=== PATIENT | male | born 1995 | race Caucasian/White ===

== ENCOUNTER 2019-01-19 14:06 | Outpatient (CLI) | payer OTHER ==
[2019-01-19 16:51] LABS: #Eosinphils 0.1 thou/uL (0.0-0.7); #Lymphocytes 1.7 thou/uL (1.20-3.40); #Monocytes 0.5 thou/uL (0.11-0.59); %Basophils 0.3 % (0.0-1.0); %Eosinophils 0.9 % (0.0-10.0); %Lymphocytes 23.3 % (21.0-51.0); %Neutrophils 68.5 % (42.0-75.0); Hemoglobin 16.3 g/dL (14.0-18.0); Mean Corpuscular HGB CONC 35.6 g/dL (32.0-36.0); Mean Corpuscular Hemoglobin 30.3 pg (27.0-31.0); Mean Corpuscular Volume 85.1 fL (78.0-98.0); Mean Platelet Volume 7.2 fL (7.4-10.4); Platelet Count 234 thou/uL (130-400); RBC Distribution Width 12.3 % (11.5-14.5); Red Blood Cell (RBC) Count 5.38 mill/uL (4.70-6.10); White Blood Cell (WBC) Count 7.3 thou/uL (4.8-10.8)
[2019-01-19 17:19] LABS: Anion Gap 13 mmol/L (10-20); BUN (Urea Nitrogen) 10 mg/dL (8.9-20.6); Calc. Creatinine Clearance 0 mL/min (70-130); Calcium 8.8 mg/dL (7.8-10.44); Carbon Dioxide 24 mmol/L (22-29); Chloride 104 mmol/L (98-107); Estimated GFR-MDRD Greater than 90; Glucose 95 mg/dL (70-105); Potassium 3.8 mmol/L (3.5-5.1); Sodium 137 mmol/L (136-145)
== END 2019-01-19 14:07 | disposition home or self-care (01) ==
LOC: LABBT 14:06
PROVIDERS: ATTEND Surgery
DX: Z01.812 Encounter for preprocedural laboratory examination (principal); K40.90 Unilateral inguinal hernia, without obstruction or gangrene, not specified as recurrent
CPT/HCPCS: 80048; 85025

== ENCOUNTER 2019-01-22 05:43 | Day surgery (SDC) | payer OTHER ==
[2019-01-19 15:51] VITALS: BMI 26.9
[2019-01-22] MEDS ORDERED: SUGAMMADEX SODIUM 200 MG/2 ML VIAL ONE (06:02)
[2019-01-22] MEDS ORDERED: Fentanyl 100 MCG/2 ML VIAL ONE ×3 (06:02→10:19)
[2019-01-22] MEDS ORDERED: Bupivacaine/Epinephrine 0.25% 30 ML VIAL ONE (06:41)
[2019-01-22] MEDS ORDERED: Midazolam HCl 2 mg/2 ml Vial ONE (07:00)
[2019-01-22] MEDS ORDERED: Meperidine HCl/PF 25 MG/ML VIAL ONE (09:22)
[2019-01-22] MEDS ORDERED: Lidocaine 1% PF 5 ML VIAL ONE (09:58)
[2019-01-22] MEDS ORDERED: Glycopyrrolate 0.2 MG/ML 5 ML SYRINGE ONE (09:58)
[2019-01-22] MEDS ORDERED: Ketorolac Tromethamine 30 MG/ML VIAL ONE (09:58)
[2019-01-22] MEDS ORDERED: diphenhydrAMINE 50 MG/ML VIAL ONE (09:58)
[2019-01-22] MEDS ORDERED: Ondansetron PF 4 MG/2 ML Vial ONE (09:58)
[2019-01-22] MEDS ORDERED: Rocuronium Bromide 10 MG/ML (10ML VIAL) ONE (09:58)
[2019-01-22] MEDS ORDERED: PROPOFOL 200 MG/20 ML VIAL ONE (09:58)
[2019-01-22] MEDS ORDERED: Dexamethasone 20 MG/5 ML VIAL ONE (09:58)
--- NOTE | 2019-01-22 10:02 | OP ---
DATE OF PROCEDURE: 01/22/2019 PREOPERATIVE DIAGNOSIS: Right inguinal hernia. POSTOPERATIVE DIAGNOSIS: Bilateral inguinal hernia. PROCEDURE PERFORMED: Da Asif laparoscopic bilateral inguinal hernia repair with mesh 3DMax large, Da Asif robot. ANESTHESIA: General. ESTIMATED BLOOD LOSS: Minimal. COMPLICATIONS: None. SPECIMEN: None. FINDINGS: Bilateral inguinal hernia. DESCRIPTION OF PROCEDURE: The patient was taken to the operating room and laid supine on the operating room table. After general anesthetic was obtained, the Aragon was placed, and the abdomen and groins were shaved, prepped, and draped in a sterile fashion. A curved incision was made above the umbilicus, cautery dissected down to and scored the fascia. Abdominal cavity was entered bluntly using a Harriett clamp. An 11 mm robot trocar was placed. High-flow pneumoperitoneum was obtained. Left and right abdominal 8 mm robot trocars were placed. All ports were docked to the robot. The peritoneum was opened in the right lower quadrant where the known hernia is and the preperitoneal space was bluntly dissected to pubic tubercle medially and anterosuperior iliac crest laterally. There was also a left inguinal hernia. The same dissection was performed on the left. The full dissection of the preperitoneal space was performed exposing the direct, indirect, and femoral areas. There were bilateral direct inguinal hernias. They were reduced. The cord structures were skeletonized revealing no obvious indirect hernias. There was evidence of previous indirect hernia repair on the left. The 3DMax large mesh was brought in a sterile field. The M-labeled medial aspect was placed over pubic tubercle medially. The mesh was laid out laterally to cover the femoral, the direct and the indirect areas. The mesh was sewn into the pubic tubercle medially and into the posterior fascia laterally using Vicryl suture. The peritoneum was reapproximated using Stratafix. All needles were removed from the abdomen and accounted for. All ports were removed under camera visualization without bleeding. Pneumoperitoneum was let down. 4-0 Monocryl and Dermabond used to close all skin incisions. PDS had been used to close the fascial defect above the umbilicus. The patient was sent to Recovery in stable condition. All instrument counts, needle counts, lap counts are correct. Job ID: [id number]
[2019-01-22] MEDS ORDERED: HYDROcodone/Acetaminophen 5/325 mg Tablet ONE (10:48)
== END 2019-01-22 11:50 | disposition home or self-care (01) ==
LOC: SDC 05:43 → EDSEX 15:00
PROVIDERS: ATTEND Surgery
PROC: 0YUA4JZ Supplement Bilateral Inguinal Region with Synthetic Substitute, Percutaneous Endoscopic Approach (ICD-10-PCS; principal; 2019-01-22)
DX: K40.20 Bilateral inguinal hernia, without obstruction or gangrene, not specified as recurrent (principal)
CPT/HCPCS: C1781; J0131; J0690; J2175; J2250; J3010